=== PATIENT | male | born 1960 | race Caucasian/White ===

== ENCOUNTER → 2016-10-18 | Outpatient (CLI) | payer OTHER ==
[~2016-10-18] MED LIST: SINCALIDE (KINEVAC) 5 MCG ONE
== END | disposition home or self-care (01) ==
LOC: PETCFH 08:34
PROVIDERS: ATTEND Nurse Practitioner Family
DX: R10.11 Right upper quadrant pain (principal); R14.0 Abdominal distension (gaseous); R11.2 Nausea with vomiting, unspecified
CPT/HCPCS: 78227; A9537; J2805